=== PATIENT | male | born 1950 | race Caucasian/White ===

== ENCOUNTER 2017-02-21 17:42 | Emergency (ER) | payer BC ==
[~2017-02-21 17:42] MED LIST: LEVO50TA51 PO; MECL25 PO; NIFE1TAB85 PO; OMPR20CCR PO
[2017-02-21 17:48] VITALS: BP 138/85; PULSE 112; RESP 20; TEMP 99.1
[2017-02-21] MEDS ORDERED: SODIUM CHLOR 0.9% 1000 ML INJ 1,000 ML IV ONE ×2 (19:41)
[2017-02-21] MEDS ORDERED: SODIUM CHLOR 0.9% 1000 ML INJ 100 ML IV ONE (19:41)
[2017-02-21] MEDS ORDERED: LEVO50TA4 PO (19:42)
[2017-02-21] MEDS ORDERED: NIFE20 PO (19:42)
[2017-02-21] MEDS ORDERED: OMEP20TA PO (19:42)
[2017-02-21 19:45] VITALS: BP 136/91; PULSE 92; RESP 18; TEMP 101.1; O2SAT 96
--- NOTE | 2017-02-21 19:59 | PD ---
HPI . Fever and chills Chief Complaint: Cold / Flu Symptoms Time Seen by Provider: 19:41 Travel History International Travel<30 days: No Contact w/Intl Traveler<30days: No Traveled to known affect area: No History of Present Illness HPI Patient presents with about a 3 day history of fever and chills. MAXIMUM TEMPERATURE was 102. He reports some associated abdominal bloating and loose stools. He reports 3-4 episodes of loose stools per day. The only other possible source of infection that I found on review of systems was dysuria. He had the onset of that about 2 days ago. His temperature has been controlled with Advil. No exacerbating factor. The patient is very concerned because he has a history of lymphoma. PFSH Past Medical History Cancer: Yes (NON HODGKIN'S LYMPHOMA) Cardiovascular Problems: No Diabetes: No Diminished Hearing: No Glaucoma: No Genitourinary: Yes (ESTEVEZ'S ESOPHAGUS) Hepatitis: No Hiatal Hernia: No Hypertension: Yes Respiratory: No Immunizations Current: Yes Thyroid Disease: Yes (CHETNA'S DISEASE) Past Surgical History Abdominal Surgery: No Cardiac Surgery: No Ear Surgery: No Endocrine Surgery: No Eye Surgery: Yes (PHACO WITH IOL RIGHT EYE; BILAT CATARACTS) Genitourinary Surgery: No Gynecologic Surgery: No Neurologic Surgery: No Oral Surgery: No Pacemaker: No Thoracic Surgery: No Other Surgery: Yes (EUS FINE NEEDLE ASPIRATION) Social History Alcohol Use: Yes (beer OCCASIONALLY) Tobacco Use: No Substance Use: No Allergies-Medications (Allergen,Severity, Reaction): Coded Allergies: No Known Allergies (Verified , 02/21/17) Reported Meds & Prescriptions Reported Meds & Active Scripts Active Zithromax (Azithromycin) 250 Mg Tab 250 Mg PO DAILY 4 Days Reported Nifedipine 20 Mg Cap 60 Mg PO DAILY Levothyroxine (Levothyroxine Sodium) 50 Mcg Tab 50 Mcg PO DAILY Omeprazole 20 Mg Tab 20 Mg PO DAILY Review of Systems Except as stated in HPI: all other systems reviewed are Neg General / Constitutional: Positive: Fever, Chills Eyes: No: Drainage, Redness HENT: No: Headaches, Sore Throat, Rhinorrhea, Congestion Cardiovascular: No: Chest Pain or Discomfort Respiratory: No: Cough, Shortness of Breath Gastrointestinal: Positive: Diarrhea, Abdominal Pain (described as bloating. No real pain.), No: Nausea, Vomiting Genitourinary: Positive: Dysuria, No: Urgency, Frequency Neurologic: Positive: Weakness Physical Exam Narrative GENERAL: This is a healthy-appearing [place] man who is in no acute distress. SKIN: Warm and dry. No significant rash noted. HEAD: Atraumatic. Normocephalic. EYES: Pupils equal and round. Extraocular movements are intact. ENT: No nasal bleeding or discharge. Mucous membranes pink but dry. NECK: Trachea midline. Neck is supple with no cervical lymphadenopathy. CARDIOVASCULAR: Tachycardia at about 110. Normal rhythm. No murmurs. RESPIRATORY: No accessory muscle use. Lungs are clear with full air movement throughout. GASTROINTESTINAL: Abdomen soft, non-tender, nondistended. Bowel sounds are normal. MUSCULOSKELETAL: No obvious deformities. No edema. NEUROLOGICAL: Awake and alert. No obvious cranial nerve deficits. Motor grossly within normal limits. Normal speech. PSYCHIATRIC: Appropriate mood and affect; insight and judgment normal. Data Data Last Documented VS Vital Signs Date Time Temp Pulse Resp B/P Pulse Ox O2 Delivery O2 Flow Rate FiO2 02/21/17 21:20 98.9 84 16 142/90 99 Room Air Orders Complete Blood Count With Diff (02/21/17 19:41) Comprehensive Metabolic Panel (02/21/17 19:41) Lactic Acid Sepsis Protocol (02/21/17 19:41) Urinalysis - C+S If Indicated (02/21/17 19:41) Blood Culture (02/21/17 19:41) Chest, Single Ap (02/21/17 19:41) Iv Access Insert/Monitor (02/21/17 19:41) Sodium Chlor 0.9% 1000 Ml Inj (Ns 1000 M (02/21/17 19:41) Sodium Chlor 0.9% 1000 Ml Inj (Ns 1000 M (02/21/17 19:41) Sodium Chlor 0.9% 1000 Ml Inj (Ns 1000 M (02/21/17 19:41) Ct Abd/Pel W Iv Contrast(Rout) (02/21/17 19:49) Influenzae A/B Antigen (02/21/17 20:00) Acetaminophen (Tylenol) (02/21/17 20:30) Ceftriaxone Inj (Rocephin Inj) (02/21/17 20:45) Azithromycin (Zithromax) (02/21/17 20:45) Iohexol 350 Inj (Omnipaque 350 Inj) (02/21/17 21:20) Labs Laboratory Tests Test 02/21/17 02/21/17 19:50 20:00 Urine Color [place] Urine Turbidity CLEAR Urine pH 5.5 Urine Specific [place] 1.026 Urine Protein 100 mg/dL Urine Glucose (UA) NEG mg/dL Urine Ketones NEG mg/dL Urine Occult Blood SMALL Urine Nitrite NEG Urine Bilirubin NEG Urine Leukocyte Esterase NEG Urine Squamous Epithelial 0-5 /hpf Cells Urine Amorphous Sediment FEW Urine Fine Granular Casts 0-2 /lpf Urine Mucus FEW /lpf Microscopic Urinalysis Comment CULT NOT INDICATED White Blood Count 7.1 TH/MM3 Red Blood Count 5.38 MIL/MM3 Hemoglobin 14.7 GM/DL Hematocrit 45.7 % Mean Corpuscular Volume 84.9 FL Mean Corpuscular Hemoglobin 27.3 PG Mean Corpuscular Hemoglobin 32.1 % Concent Red Cell Distribution Width 12.9 % Platelet Count 91 TH/MM3 Mean Platelet Volume 8.4 FL Neutrophils (%) (Auto) 61.9 % Lymphocytes (%) (Auto) 29.8 % Monocytes (%) (Auto) 6.7 % Eosinophils (%) (Auto) 0.5 % Basophils (%) (Auto) 1.1 % Neutrophils # (Auto) 4.4 TH/MM3 Lymphocytes # (Auto) 2.1 TH/MM3 Monocytes # (Auto) 0.5 TH/MM3 Eosinophils # (Auto) 0.0 TH/MM3 Basophils # (Auto) 0.1 TH/MM3 CBC Comment AUTO DIFF Differential Comment FINAL DIFF MANUAL Platelet Estimate LOW Platelet Morphology Comment CLUMPED Red Cell Morphology Comment NORMAL Sodium Level 137 MEQ/L Potassium Level 3.7 MEQ/L Chloride Level 104 MEQ/L Carbon Dioxide Level 24.1 MEQ/L Anion Gap 9 MEQ/L Blood Urea Nitrogen 13 MG/DL Creatinine 1.20 MG/DL Estimat Glomerular Filtration 60 ML/MIN Rate Random Glucose 119 MG/DL Lactic Acid Level 1.4 mmol/L Calcium Level 8.3 MG/DL Total Bilirubin 0.8 MG/DL Aspartate Amino Transf 29 U/L (AST/SGOT) Alanine Aminotransferase 37 U/L (ALT/SGPT) Alkaline Phosphatase 84 U/L Total Protein 8.0 GM/DL Albumin 3.4 GM/DL MDM Medical Decision Making Medical Screen Exam Complete: Yes Emergency Medical Condition: Yes Medical Record Reviewed: Yes (the patient was diagnosed with lymphoma in 2010. 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 He has never had any treatment for the lymphoma he has never had any complications secondary to his lymphoma. He does not have any recent CBCs in our system.) Differential Diagnosis Differential diagnosis of fever includes but is not limited to viral illness, strep throat, otitis media, pneumonia, sepsis, UTI Narrative Course This patient presents with fevers and chills. Septic workup has been ordered. I have queried up-to-date. His lymphoma is probably of no clinical significance. CBC & BMP Diagram 02/21/17 20:00 Flu screen is negative. UA is negative for infection. Lactic acid level is 1.4. Last Impressions Chest X-Ray 02/21/171940 Signed Impressions: Service Date/Time: Tuesday, February 21, 2017 19:50 - CONCLUSION: Mild left basilar airspace disease. Chadd Martinez MD The chest x-ray was independently viewed by me. Rocephin and Zithromax have now been ordered. The patient is not having any difficulty breathing. CT abd/pelvis: 1. Hepatic, renal and pancreatic cysts. 2. Atherosclerosis. 3. Nonobstructing left renal calculus. No pneumonia in the lower lung hu was noted on CT of the abdomen and pelvis. The patient is markedly improved. He'll be discharged to home on Zithromax. Tylenol and ibuprofen as needed for fever area and lots of fluids. Recheck with his physician in 2 days. Sepsis Criteria SIRS Criteria (2 or more): Temp > 100.9 or < 96.8, Heart rate over 90 Sepsis Criteria (SIRS+source): Infect source susp/known Criteria Outcome: Meets SIRS criteria, Meets sepsis criteria Diagnosis Primary Impression: Fever Qualified Code: R50.9 - Fever, unspecified fever cause Additional Impressions: Sepsis Qualified Code: A41.9 - Sepsis, due to unspecified organism Pneumonia Qualified Code: J18.1 - Pneumonia of left lower lobe due to infectious organism Referrals: Shirley Clay MD 2 days Patient Instructions: Community Acquired Pneumonia (DC), General Instructions Additional Instructions: Drink lots of fluids. Continue Tylenol and Advil as needed for fever. Return here for any worsening of symptoms. Med/Other Pt SpecificInfo: Prescription(s) given Scripts Azithromycin (Zithromax)250 Mg [id number] Mg PO DAILY 4 Days Ref 0 Prov:Liss Higgins MD 02/21/17 Disposition: 01 DISCHARGE HOME Condition: Stable Liss Higgins MD Feb 21, 2017 19:59
--- NOTE | 2017-02-21 20:10 | RADRPT ---
EXAM DATE/TIME: 02/21/2017 19:50 [facility] COMPARISON: No previous studies available for comparison. INDICATIONS : Fever, cough. MEDICAL HISTORY : Non Hodgkin's lymphoma. spike's disease. SURGICAL HISTORY : None. ENCOUNTER: Initial ACUITY: 2 days PAIN SCORE: 0/10 LOCATION: Bilateral chest FINDINGS: There is cardiomegaly. Air bronchogram formation in the left lower lobe consistent with mild consolid ation. No effusions are in osseous structures are intact. CONCLUSION: Mild left basilar airspace disease. Chadd Martinez MD on February 21, 2017 at 20:08 Board Certified Radiologist. This report was verified electronically.
[2017-02-21 20:16] LABS: AUTOMATED NEUTROPHIL # 4.4 TH/MM3 (1.8-7.7); BASOPHIL # 0.1 TH/MM3 (0-0.2); BASOPHIL % 1.1 % (0.0-2.0); EOSINOPHIL % 0.5 % (0.0-4.0); HEMATOCRIT 45.7 % (39.0-51.0); LYMPH % 29.8 % (9.0-44.0); LYMPHOCYTE # 2.1 TH/MM3 (1.0-4.8); MEAN CELL VOLUME 84.9 FL (80.0-100.0); MEAN CORPUSCULAR HEMOGLOBIN 27.3 PG (27.0-34.0); MEAN CORPUSCULAR HGB CONC 32.1 % (32.0-36.0); MONO % 6.7 % (0.0-8.0); NEUT % 61.9 % (16.0-70.0); PLATELET COUNT 91 TH/MM3 (150-450); RED BLOOD COUNT 5.38 MIL/MM3 (4.50-5.90); RED CELL DISTRIBUTION WIDTH 12.9 % (11.6-17.2); WHITE BLOOD COUNT 7.1 TH/MM3 (4.0-11.0)
[2017-02-21 20:18] LABS: BLOOD, URINE SMALL (NEG); GLUCOSE,URINE NEG (NEG); KETONE, URINE NEG (NEG); NITRITE,URINE NEG (NEG); PH, URINE 5.5 (5.0-8.5)
[2017-02-21 20:21] LABS: HEMO FLAGS AUTO DIFF
[2017-02-21 20:22] LABS: CHLORIDE 104 MEQ/L (98-107); POTASSIUM 3.7 MEQ/L (3.5-5.1); SODIUM (NA) 137 MEQ/L (136-145)
[2017-02-21 20:26] LABS: ANION GAP 9 MEQ/L (5-15); BICARBONATE 24.1 MEQ/L (21.0-32.0); BLOOD UREA NITROGEN 13 MG/DL (7-18)
[2017-02-21 20:27] LABS: URINE COLOR AMBER (YELLW/STRAW)
[2017-02-21 20:28] LABS: MUCUS URINE FEW /lpf (OCC); SQUAMOUS EPITHELIAL CELL URINE 0-5 /hpf (0-5)
[2017-02-21 20:29] LABS: ALT (GPT) 37 U/L (12-78); AST (GOT) 29 U/L (15-37); GLOMERULAR FILTRATION RATE 60 ML/MIN (>89)
[2017-02-21 20:29] LABS: COMMENT (UR) CULT NOT INDICATED; CULTURE IF INDICATED CULT NOT INDICATED
[2017-02-21] MEDS ORDERED: ACETAMINOPHEN 325 MG TAB PO ONE (20:30)
[2017-02-21 20:31] LABS: TOTAL BILIRUBIN ADULT 0.8 MG/DL (0.2-1.0)
[2017-02-21 20:32] LABS: ALKALINE PHOSPHATASE 84 U/L (45-117)
[2017-02-21] MEDS ORDERED: cefTRIAXone INJ 1,000 MG in SODIUM CHLORIDE 0.9% INJ 100 ML IV ONE (20:45)
[2017-02-21] MEDS ORDERED: AZITHROMYCIN 250 MG TAB PO ONE (20:45)
[2017-02-21 20:46] LABS: PLATELET ESTIMATE SMEAR LOW (NORMAL); PLATELET MORPHOLOGY CLUMPED (NORMAL)
[2017-02-21 20:47] LABS: SCAN/DIFF FINAL DIFF MANUAL
[2017-02-21 21:10] VITALS: BP 132/81; PULSE 94; RESP 18; TEMP 100; O2SAT 95
[2017-02-21 21:20] VITALS: BP 142/90; PULSE 84; RESP 16; TEMP 98.9; O2SAT 99
[2017-02-21] MEDS ORDERED: IOHEXOL 350 MG/ML 10 ML VIAL (for RAD DIAG) IV ONE (21:20)
--- NOTE | 2017-02-21 21:40 | RADRPT ---
EXAM DATE/TIME: 02/21/2017 20:55 [facility] COMPARISON: No previous studies available for comparison. INDICATIONS : Abdominal pain. Bloating. chills. Fever. Diarrhea. IV CONTRAST: 100 cc Omnipaque 350 (iohexol) IV ORAL CONTRAST: No oral contrast ingested. RADIATION DOSE: 7.75 CTDIvol (mGy) MEDICAL HISTORY : Lymphoma. SURGICAL HISTORY : None. ENCOUNTER: Initial ACUITY: 3 days PAIN SCALE: 2/10 LOCATION: Bilateral lower quadrant uper quadrant TECHNIQUE: Volumetric scanning of the abdomen and pelvis was performed. Using automated exposure control and ad justment of the mA and/or kV according to patient size, radiation dose was kept as low as reasonably achievable to obtain optimal diagnostic quality images. DICOM format image data is available electro nically for review and comparison. FINDINGS: A few scattered hepatic cysts are noted. The spleen, adrenal glands, and stomach are unremarkable. Th ere is a cyst at the upper pole of the right kidney measuring 1.7 cm. Cyst left lower pole kidney sade suring 2.2 cm. 2 mm nonobstructing left lower pole calculus on image 41. Tiny left upper pole renal c yst medially measuring 1 cm. There is a cyst in the body the pancreas measuring 1.5 cm. The prostate is enlarged measuring 6.2 x 4.7 cm in transverse and AP dimension. Urinary bladder unremarkable. Athe rosclerotic calcifications of the aorta and iliac vessels are noted. No pathologically enlarged lymph nodes are identified. There is subcentimeter nodes in the retroperitoneum. Osseous structures demons trate degenerative changes of the spine. Lung bases are clear. CONCLUSION: 1. Hepatic, renal and pancreatic cysts. 2. Atherosclerosis. 3. Nonobstructing left renal calculus. Chadd Martinez MD on February 21, 2017 at 21:35 Board Certified Radiologist. This report was verified electronically.
[2017-02-21] MEDS ORDERED: ZITH250T PO (21:50)
[2017-02-21 22:39] VITALS: BP 139/86; PULSE 83; RESP 16; O2SAT 93; O2SAT 96
== END 2017-02-21 22:48 | disposition home or self-care (01) ==
LOC: PHED 17:42
DX: A41.9 Sepsis, unspecified organism (principal); J18.9 Pneumonia, unspecified organism; Z85.72 Personal history of non-Hodgkin lymphomas; E06.3 Autoimmune thyroiditis; I10 Essential (primary) hypertension
CPT/HCPCS: 71010; 74177; 80053; 81001; 83605; 85007; 85027; 87040; 87804; 96361; 96365; 99285; J0696; J7030; Q9967